=== PATIENT | female | born 1965 | race African-American/Black ===

== ENCOUNTER → 2018-07-21 | Outpatient (CLI) | payer OTHER ==
[~2018-07-21] MED LIST: ALBU2.5V8 INH; AMLO5TAB10 PO; CETI10TA22 PO; FLUT9.9S NS; LOSA-73 PO; MULT-658 PO; PANT20TA2 PO; VENTOLIN HFA18 GM INH
--- NOTE | 2018-07-22 03:52 | PAIN ---
DATE OF SERVICE: 07/21/2018 INITIAL CONSULTATION FOR PAIN CLINIC CHIEF COMPLAINT: Left neck and left upper extremity pain. HISTORY OF PRESENT ILLNESS: This is a 53-year-old female who presents with history of pain in the left arm and shoulder since about early 05/2018. The patient reports it happened gradually, not result of any specific injury or action that she is aware of. It has been getting worse with time; worse with repetitive motions; lifting weight with her left arm, reaching above her head, putting even her jacket or shirt on, reaching behind the left arm to put her arm through the sleeve. The patient reports it is becoming more painful with tingling and numbness with throbbing pain in the neck and shoulder, also in the arm, mostly in the biceps area of the anterior forearm and into the second index, third and fourth fingers on the left hand with tingling and numbness as well. The patient reports it is throbbing and shooting in the neck and tingling in the hand. No symptoms on the right side. The patient reports disability rate from 0-10, 10 being the worst, 6 with family home responsibilities, recreation and social activity, 8 with occupation and sexual behavior and self-care and life support activities. The patient has not had any diagnostic studies on her cervical spine; however, her shoulder was worked up extensively with her web marketing specialist showing just mild degenerative changes in the left shoulder and acromioclavicular joint. No other abnormalities. The patient reports that she fatigue very easily. She has been dropping items from the left hand when she has been using her hand repetitively such as when she is at work. The patient reports otherwise no gross motor loss and no loss of function completely. The patient reports no significant pain in the right upper extremity. PAST MEDICAL HISTORY: Significant for shortness of breath, hypertension, acid reflux, esophageal strictures. PREVIOUS SURGERY: Include hysterectomy in 1999. CURRENT MEDICATIONS: Include amlodipine, losartan, omeprazole, Ventolin inhaler and [id number] Tylenol. ALLERGIES: The patient has no known drug allergies. FAMILY HISTORY: Significant for no major medical conditions or problems that she is aware of. SOCIAL HISTORY: The patient does not drink alcohol, does not smoke. Denies illegal, illicit or recreational drugs. She is and lives with her spouse and lives locally in [place], [place]. Works at a local [employer]. REVIEW OF SYSTEMS: The patient's review of systems is positive for those items mentioned in history of present illness. All systems reviewed and otherwise negative. It is complete, full and well documented on the patient's chart. PHYSICAL EXAMINATION: VITAL SIGNS: The patient's blood pressure is 140/100, pulse 96, respirations 16, temperature is 98.2 degrees Fahrenheit. Height is 5 feet 2 inches, weighs 197 pounds. GENERAL: The patient is awake, alert, oriented, appropriate, very pleasant demeanor. HEENT: Head is normocephalic, atraumatic. Extraocular movements are intact and symmetrical. Oral cavity: Mucous membranes moist and pink. Dentition is intact. NECK: Shows anterior throat supple without palpable lymphadenopathy noted. Swallow reflex is symmetrical. CHEST: Shows normal on inspection. Breath sounds clear to auscultation bilaterally. HEART: Shows S1, S2 clear. No murmurs auscultated. ABDOMEN: Soft, nontender, nondistended. No palpable organomegaly is noted. No rebound or guarding demonstrated. BACK: Shows spine grossly in the midline, normal-appearing cervical lordotic curvature, thoracic kyphotic curvature and lumbar lordotic curvature. Cervical paraspinous muscle shows symmetrical on inspection; on palpation shows some mild tenderness inferior greater in the left than the right superior medial trapezius as well as the cervical paraspinous musculature, but without any asymmetry, without atrophy, hypertrophy, no trigger points. The patient has good rotational motion of cervical spine, both laterally as well as extension and flexion without difficulty or pain reported, with some mild tenderness with extension only. EXTREMITIES: The patient's upper extremities show deep tendon reflexes at 2+ in the biceps and triceps tendons. Motor exam is strong with 5/5 condominium association manager strength on the right and 4/5 on the left. Likewise with bicep and tricep flexion 4/5 on the left, 5/5 on the right. Peripheral pulses are 2+ radial distribution. No peripheral edema is noted bilaterally. Shoulder shrug is strong and intact without loss of strength on resistance as is abduction of the shoulder to 90 degrees without loss of strength on resistance as well as some minor pain reported in the left base of the shoulder on the left side with resistance. SKIN: Shows warm and dry, good turgor. No edema. No sores, rashes or bruising. IMPRESSION: This is a 53-year-old female with: 1. History of pain for about 2 months in a radicular fashion in the cervical distribution on the left at C6-C7 dermatomal distribution. 2. History of hypertension. 3. Esophageal stricture history. PLAN: Options were discussed with the patient including conservative medical management, physical therapy, interventional techniques. She would like to pursue conservative treatment at first. We will order physical therapy for the patient with cervical traction as well as strengthening and stretching exercises and mobility for the cervical distribution and the shoulders. The patient will follow up once this is completed. Also order MRI scan to better identify the cause of cervical radiculopathy, which she clearly has clinically on the left side with weakness in the left hand. The patient will follow up after MRI scan is completed as well as physical therapy. If not significantly improved, we did discuss potential cervical epidural steroid injection at that time at the C6-C7 level, translaminar approach for her C6-C7 left-sided cervical radiculopathy. The patient understands and agrees, will follow up once physical therapy is completed or sooner if not progressing successfully. ENIO DOBBS MD DR: JORGE ALBERTO/greg JOB#: [id number] / [id number]
== END | disposition home or self-care (01) ==
LOC: PNCL 09:39
PROVIDERS: ATTEND Anesthesiology
DX: M54.12 Radiculopathy, cervical region (principal); M79.622 Pain in left upper arm; I10 Essential (primary) hypertension; K21.9 Gastro-esophageal reflux disease without esophagitis; R53.1 Weakness; R20.0 Anesthesia of skin
CPT/HCPCS: G0463

== ENCOUNTER → 2018-07-26 | Outpatient (CLI) | payer OTHER ==
--- NOTE | 2018-07-26 12:51 | RAD ---
MRI of the cervical spine without contrast 07/26/2018 CLINICAL HISTORY: Neck pain which radiates down the left arm for 2 months. TECHNIQUE: Unenhanced T1-weighted, T2-weighted and inversion recovery sagittal and gradient echo and T2-weighted axial images of the cervical spine were obtained. FINDINGS: There is slight reversal of the normal cervical lordosis. Degenerative signal changes are seen involving all of the disks of the cervical spine. Loss of height of the C5-6 and C6-7 discs is noted. Degenerative signal changes are seen within the marrow surrounding these discs. At the C2-3, C3-4 and C4-5 disc spaces there are minimal to mild generalized disc bulges. Degenerative changes are seen involving the uncovertebral and facet joints bilaterally. These findings do not result in significant central spinal canal or neural foraminal stenosis. At the C5-6 disc space there is a mild generalized disc bulge. Superimposed on this disc bulge is a focal central disc protrusion. This measures 3 mm in AP diameter. Degenerative changes are seen involving the uncovertebral and facet joints, right greater than left. These findings when combined do not result in significant central spinal canal stenosis. Mild to moderate right neural foraminal stenosis is seen. The left neural foramen is patent. At the C6-7 disc space there is a mild generalized disc bulge. Degenerative changes are seen involving the uncovertebral and facet joints bilaterally. These findings do not result in significant central spinal canal stenosis. Mild bilateral neural foraminal stenosis is seen. At the C7-T1 disc space there is a minimal generalized disc bulge. Degenerative changes are seen involving the facet joints bilaterally. These findings do not result in significant central spinal canal or neural foraminal stenosis. IMPRESSION: Degenerative changes are seen throughout the cervical spine. These findings do not result in significant central spinal canal stenosis at any level. Mild to moderate right neural foraminal stenosis is seen at C5-6. Mild bilateral neural foraminal stenosis is seen at C6-7. Electronically signed by: Baudilio Hill MD (07/26/2018 12:48 PM) [id number]
== END | disposition home or self-care (01) ==
LOC: MRI 14:23
PROVIDERS: ATTEND Anesthesiology
DX: M47.22 Other spondylosis with radiculopathy, cervical region (principal); M48.02 Spinal stenosis, cervical region; M79.602 Pain in left arm; Z90.710 Acquired absence of both cervix and uterus; Z98.890 Other specified postprocedural states
CPT/HCPCS: 72141